=== PATIENT | female | born 1990 | race Two or more races ===

== ENCOUNTER 2017-04-06 15:05 | Emergency (ER) | payer OTHER ==
[~2017-04-06] VITALS: Ht 160 cm; Wt 56.2 kg
[2017-04-06 16:10] VITALS: BP 121/79
== END 2017-04-06 16:10 | disposition home or self-care (01) ==
LOC: ED 15:05
DX: R00.2 Palpitations (principal); R06.02 Shortness of breath; F45.8 Other somatoform disorders; T43.615A Adverse effect of caffeine, initial encounter; Y92.89 Other specified places as the place of occurrence of the external cause